=== PATIENT | female | born 1955 | race African-American/Black ===

== ENCOUNTER 2016-08-31 06:06 | Inpatient (IN) ==
--- NOTE | 2016-08-30 12:34 | EKG Report ---
Stationary ECG Study [facility] Test Date: 08/30/2016 12:33:51 PM Pat Name: DEYSI NAVARRO Department: Room: Gender: F Neonatal Pediatric Nurse: YAMILE PADILLA : 1955 Requested by: Beto Stacy Order Number: [id number] Reading MD: MELISSA SALCEDO Intervals [place] Rate: 47 P: 84 NV: 149 QRS: 88 QRSD: 94 T: 80 QT: 469 QTc: 431 Interpretive Statements SINUS BRADYCARDIA MINIMAL ST DEPRESSION Electronically Signed On 08-30-16 13:01:28 FORMULA BOTTLER by MELISSA SALCEDO [email or web address]
[2016-08-30 12:35] LABS: Basophils # 0.1 10*3/uL (0.0-0.2); Basophils % 1.1 % (0.0-0.8); Eosinophils # 0.1 10*3/uL (0.0-0.87); Eosinophils % 2.5 % (0.00-10.9); Hematocrit 41.6 VOL% (35.7-47.0); Hemoglobin 13.2 GM/DL (12.0-16.0); Immature Granulocytes % 0.2 %; Immature Granulocytes Absolute 0.01 #; Lymphocytes # 2.3 10*3/uL (1.4-4.0); Lymphocytes % 47.8 % (21.3-54.2); Mean Corpuscular HGB Conc 31.7 GM/DL (32-36); Mean Corpuscular Hemoglobin 30 PG (27-34); Mean Corpuscular Volume 93.3 FL (87-102); Mean Platelet Volume 9.7 FL (9.6-12.0); Monocytes # 0.4 10*3/uL (0.11-0.8); Monocytes % 7.6 % (1.7-12.7); Neutrophils # 1.9 10*3/uL (1.4-7.4); Neutrophils % 40.8 % (38.7-73.9); Platelet Count 283 T/CUMM (130-400); Red Blood Count 4.46 MC/CUMM (3.8-5.5); Red Cell Distribution Width 12.6 % (9.3-17.3); White Blood Count 4.7 T/CUMM (4-12)
[2016-08-30 12:44] LABS: PT Patient Result 10.5 SECS; Partial Thromboplastin Time 24.9 SECS (0-40)
[2016-08-30 13:10] LABS: Albumin 3.9 G/DL (3.4-5.0); Bilirubin,Total 0.7 MG/DL (0.2-1.0); Calcium 9.5 MG/DL (8.5-10.1); Osmolality,Calculated 294.6 MOS/KG (273-304); Potassium 4.6 MMOL/L (3.5-5.1); Total Protein 7.4 G/DL (6.4-8.3)
--- NOTE | 2016-08-30 13:30 | XRay Report ---
XR chest 2V Indication: Preop evaluation Comparison: None Technique: Frontal and lateral views of the chest Findings: Heart size is upper limits of normal. Chronic changes of the lungs without focal consolidation, pleural effusion, or pneumothorax. There is significant eventration of the right hemidiaphragm. Osseous and surrounding soft tissue structures demonstrate no acute abnormality. IMPRESSION: No acute cardiopulmonary process demonstrated. PROCEDURE INTERPRETED AT [facility] DEPARTMENT OF RADIOLOGY Final Report Signed by: Dr Geovani Robbins
[~2016-08-31 06:06] MED LIST: ceFAZolin 2,000 MG in PREMIX 1 EACH IV ONE
[2016-08-31] MEDS ORDERED: FAMOTIDINE 20 MG TABLET PO ONE (06:26)
[2016-08-31] MEDS ORDERED: FAMOTIDINE 20 MG TABLET ONE (06:31)
[2016-08-31] MEDS: LACTATED RINGERS 1,000 ML IV SCH ×2 (06:32→08:06)
--- NOTE | 2016-08-31 06:39 | History and Physical Update ---
History and Physical Update - History and Physical H&P was reviewed, the patient examined and there: are no changes in the patients condition since last H&P was completed.
[2016-08-31] MEDS ORDERED: ISOSULFAN BLUE 5 ML VIAL SUBCUT ONE (06:42)
[2016-08-31] MEDS ORDERED: ROCURONIUM 100 MG/10 ML VIAL IV ONE (07:18)
[2016-08-31] MEDS ORDERED: NEOSTIGMINE 10 MG/10 ML VIAL ONE (07:18)
[2016-08-31] MEDS ORDERED: LIDOCAINE 1% 5 ML VIAL ONE (07:18)
[2016-08-31] MEDS ORDERED: ONDANSETRON 4 MG/2 ML VIAL ONE (07:18)
[2016-08-31] MEDS ORDERED: DEXAMETHASONE 10 MG/1 ML VIAL ONE (07:18)
[2016-08-31] MEDS ORDERED: PHENYLEPHRINE 1 MG/10 ML SYRINGE IV ONE (07:18)
[2016-08-31] MEDS ORDERED: GLYCOPYRROLATE 0.4 MG/2 ML VIAL ONE (07:18)
[2016-08-31] MEDS ORDERED: PROPOFOL 200 MG/20 ML VIAL IV ONE (07:18)
[2016-08-31] MEDS ORDERED: ONDANSETRON 4 MG/2 ML VIAL IV PRN ×2 (07:43→09:49)
[2016-08-31] MEDS ORDERED: HYDROmorphone 2 MG/1 ML VIAL IV PRN ×2 (07:43→09:49)
[2016-08-31] MEDS ORDERED: BACITRACIN 50,000 UNIT VIAL ONE (09:35)
[2016-08-31] MEDS ORDERED: ACETAMINOPHEN 325 MG TABLET PO PRN (09:49)
[2016-08-31] MEDS ORDERED: BISACODYL 5 MG TABLET PO PRN (09:49)
--- NOTE | 2016-08-31 10:06 | Operative Note ---
Date of procedure: 08/31/16 Pre-op diagnosis: Local recurrent breast cancer right breast Post-op diagnosis: same Procedure: Operative note: Preoperative diagnosis: Locally recurrent breast cancer of the right breast Postoperative diagnosis: Same Procedure: Right nipple sparing mastectomy with axillary dissection per Dr. Stacy Breast reconstruction per Dr. Petersen Surgeon Dr. Stacy Plastic surgeon Dr. Petersen Irrigator Gravity Flow Monae Dinh, STUDENT MINISTRY PASTOR ACNP Anesthesia General tracheal. Brief history: 61-year-old -[place] female who several years ago had a lumpectomy of the right breast for a cancer and underwent radiation therapy today but did not have an axillary dissection. She was on tamoxifen for a while but has been off of that now. Came to see us because of a recurrent area in the right breast at the area of her previous incision. Core needle biopsy showed that this was cancer and probably is a local recurrence in this breast at the site of her previous surgery. We discussed the situation with the patient and she understood that because she has had radiation therapy she is going to have to undergo a mastectomy and she elected reconstruction. Dr. Petersen discussed the procedure with the patient and planned out the surgical incision. Because the recurrence is 6-8 cm from the nipple we elected to do a nipple sparing mastectomy. Procedure: With patient supine position prepped and draped in sterile fashion timeout and antibiotics completed we made an incision as outlined by Dr. Petersen on the lateral part of the breast and just underneath the areola. We went to the skin and subcutaneous tissue and then we lifted this tissue up and began to take the breast off using a knife to carefully remove the breast from the Fredy's fascia underneath it to the level of the areola. Once we reached the areolar we carefully dissected underneath that goal is close to the nipple as we can get. Once we had a clear of the areola we then carried this up to the clavicle area down to the level of the muscle at this level. Using sharp dissection with the knife we were able to create a superior and inferior flaps down to the costal margin and then medial to the sternal and lateral to the latissimus muscle. Once we had these created here I went back to the areola where we took some additional breast tissue from the underside of the nipple sent for pathology. Frozen on this which show benign tissue and no evidence of any Cancer in this area. Once that was done and we went up and begin to take the breast off the chest wall by incising the fascia on top of the pectoralis major muscle bring it medial to lateral to we get this up towards the axilla. We carefully dissected along the lateral border of the pectoralis major muscle to identify the minor carefully dissected preserving the vessels to the muscles. This got us into the area of the axilla were brought the pro BN but we could not find a decent signal in this area to call a clear sentinel node. They had indicated one that we can never pick it up on the probe at this time. With that I just did a lower axillary dissection taking some of this axillary tissue out at this time which had some palpable nodes in it. Once this tissue was removed intact with the right breast we were able to remove the rest of the breast from the chest wall. Margins were marked as well as the tumor in the area of the areola. Once that was done and sent to pathology Dr. Petersen began to come in to look at her wound. We washed everything with sterile water and using light cauterization controlling additional bleeding. It looked pretty dry when the pathologist called back and was concerned that the recurrent tumor was very close to the upper margin. We knew it shaved it under the skin where there was some scar tissue which showed this to Dr. Petersen and he tono out an area where we could ellipse this area of skin out where the tumor was underneath. We took the knife and ellipse the skin out to be sent as a permanent scan where the tumor was underneath. Once that was completed and no other bleeding was seen Dr. Petersen came in to do the reconstruction part at this time. Refer to Dr. Ireland's note Estimated blood loss from the mastectomy about 30 cc Sponge count was correct 2 Drain probably 1 Trace-Carney Complications none Condition stable satisfactory Anesthesia: CATALINAA Surgeon / Physician: Beto Stacy Irrigator Gravity Flow: Monae Dinh Estimated blood loss: other (30 cc) Specimens: other (Right breast and axilla) Condition: stable Disposition: floor Results - Labs CBC & BMP: 08/30/16 12:25 08/30/16 12:25 Discharge Plan - Discharge Medications No Action hydroCHLOROthiazide [Hydrochlorothiazide] 25 mg PO DAILY Lisinopril 40 mg PO DAILY - Follow Up or Referral - Forms/Instructions
[2016-08-31] MEDS ORDERED: TISSUE ADHESIVE 1 EACH APPLICATOR TOP ONE ×2 (10:29→10:34)
[2016-08-31] MEDS ORDERED: MIDAZOLAM 2 MG/2 ML VIAL ONE (11:01)
[2016-08-31] MEDS ORDERED: SUFentanil 50 MCG/ML AMP ONE (11:01)
[2016-08-31] MEDS ORDERED: ACETAMINOPHEN 1,000 MG/100 ML VIAL IV ONE (11:01)
[2016-08-31] MEDS ORDERED: LACTATED RINGERS 1,000 ML IV ONE (11:01)
[2016-08-31] MEDS ORDERED: SEVOFLURANE 1 UNIT/15 MINUTE INH ONE (11:01)
[2016-08-31] MEDS: DEXTROSE 5% NACL 0.45% 1,000 ML IV SCH ×2 (11:59→22:03)
--- NOTE | 2016-08-31 12:24 | Anesthesia ---
Anesthesia Post OP - Post Ansesthetic Evaluation Patient seen in post op: Yes Resp: within normal limits CV: within normal limits Mental: within normal limits Temp: within normal limits Bmmh-Gk-Egnicokbc: within normal limits Nausea and Vomiting: within normal limits Pain: within normal limits
[2016-08-31] MEDS: KETOROLAC 15 MG/1 ML VIAL IV SCH ×2 (12:29→21:59)
[2016-08-31 15:14] LABS: Hematocrit 39.3 VOL% (35.7-47.0); Hemoglobin 12.8 GM/DL (12.0-16.0)
[2016-08-31] MEDS: ceFAZolin 2,000 MG in PREMIX 1 EACH IV SCH (15:35)
[2016-09-01] MEDS: ceFAZolin 2,000 MG in PREMIX 1 EACH IV SCH ×2 (00:33→08:04)
[2016-09-01] MEDS: KETOROLAC 15 MG/1 ML VIAL IV SCH (04:34)
[2016-09-01 05:53] LABS: Basophils % 0.4 % (0.0-0.8); Eosinophils % 0.4 % (0.00-10.9); Hematocrit 34.6 VOL% (35.7-47.0); Immature Granulocytes % 0.7 %; Immature Granulocytes Absolute 0.05 #; Lymphocytes # 2.1 10*3/uL (1.4-4.0); Lymphocytes % 27.1 % (21.3-54.2); Mean Corpuscular HGB Conc 31.8 GM/DL (32-36); Mean Corpuscular Hemoglobin 30 PG (27-34); Mean Corpuscular Volume 93.8 FL (87-102); Mean Platelet Volume 10.5 FL (9.6-12.0); Monocytes # 0.8 10*3/uL (0.11-0.8); Monocytes % 10.2 % (1.7-12.7); Neutrophils # 4.7 10*3/uL (1.4-7.4); Neutrophils % 61.2 % (38.7-73.9); Platelet Count 220 T/CUMM (130-400); Red Blood Count 3.69 MC/CUMM (3.8-5.5); Red Cell Distribution Width 12.7 % (9.3-17.3); White Blood Count 7.6 T/CUMM (4-12)
[2016-09-01 06:06] LABS: Calcium 8.5 MG/DL (8.5-10.1); Osmolality,Calculated 288.8 MOS/KG (273-304); Potassium 4.2 MMOL/L (3.5-5.1)
[2016-09-01 06:24] LABS: Platelet Estimate Normal
--- NOTE | 2016-09-01 07:44 | Oncology Consult Note ---
History of Present Illness History of present illness: Ms. 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 She underwent nipple sparing mastectomy yesterday. I was asked to see her mainly as a courtesy. She looks well this morning. She is scheduled to see me on September 05. We will move this to September 12 to give time for the pathology to return. Home Medications Medication Instructions Recorded Confirmed Type Lisinopril 40 mg PO DAILY 08/30/16 08/31/16 History hydroCHLOROthiazide 25 mg PO DAILY 08/30/16 08/31/16 History [Hydrochlorothiazide] Allergies Allergy/AdvReac Type Severity Reaction Status Date / Time No Known Allergies Allergy Unverified 08/31/16 06:17 Medical,Surgical,& Family Hx - Medical History Cardio: History of: Hypertension, Cardiovascular Problems (DR BREEN PCP.) Neurology: No history of: Seizures Endocrine: History of: Dyslipidemia (BOARDERLINE) Respiratory: History of: Respiratory Problems (FLU VAC- YES; PNEU VAC-NO.) Reproductive: History of: Breast Cancer (RT BREAST CANCER 1997/1998. REOCCURED 2016.) Other: History of: Cancer (RT BREAST CANCER.) - Surgical History Reproductive Surgeries: Surgical HX of;: Breast Surgery (RT BREAST BX DR PETERSON. LUMPECTOMY 1998. MASS REMOVED.), Tubal Ligation - Family History Family History: Reports;: Family Cancer (COUSINS BREAST CA MATERNAL), Family Diabetes (PATERNAL AND MATERNAL GRANDPARENTS), Family Hypertension (BROTHER SISTER) - Social History Smoking Status: Current some day smoker Frequency of Alcohol Use: None Type of Drug Use: None Exam - Constitutional Vitals: Period Temp Pulse Resp BP Sys/Sethi Pulse Ox Last 24 Hr 96.6 F-98.4 F 57-78 16-20 113-192/58-92 96-100 Results - Labs CBC & BMP: 09/01/16 05:12 09/01/16 05:12
[2016-09-01] MEDS ORDERED: ENOXAPARIN 30 MG/0.3 ML SYRINGE SUBCUT SCH (08:00)
[2016-09-01] MEDS: DEXTROSE 5% NACL 0.45% 1,000 ML IV SCH (08:03)
[2016-09-01] MEDS ORDERED: NON-FORMULARY MEDICATION (Lisinopril [Lisinopril] 40 MG) PO SCH (09:00)
[2016-09-01] MEDS ORDERED: PANTOPRAZOLE 40 MG TABLET PO SCH (09:00)
[2016-09-01] MEDS ORDERED: hydroCHLOROthiazide 25 MG TABLET PO SCH (09:00)
--- NOTE | 2016-09-01 10:48 | Discharge Summary ---
Hospital Course - Hospital Course Hospital Course: Discharge Summary Diagnosis: 1. Recurrent carcinoma of the right breast 2. Hypertension Procedures: 1. Right nipple sparing mastectomy by Dr Stacy 2. Right tissue senior mainframe programmer analyst with ADM and left breast augmentation by Dr Elia Petersen Brief summary-this 61 year old lady had previously undergone right breast lumpect[place] [address] Channing bruner for a small area of infiltrating ductal carcinoma. At that time she apparently had a very small invasive lesion and not had any axillary nodes biopsied. She completed a recommended 5 year course of Tamoxifen and had done well until recent mammogram showed changes in the upper outer quadrant, which when biopsied showed infiltrating ductal carcinoma. Mastectomy with sentinel node biopsy was recommended. After meeting with Dr Petersen, she elected for immediate tissue senior mainframe programmer analyst on the right and additional left augmentation was chosen. We proceeded with the surgery on 08/31/16, and she has done well during the perioperative period, with stable vital signs and labs. Today she is ambulatory, tolerating a regular diet, and having minimal pain. She has less than 20mL of serous drainage in her JUANA drain. The wounds are clean and there is no unusual swelling, ecchymosis, or tenderness. There is no ischemic changes to suggest flap compromise. She has been taught to manage her JUANA drain, and is comfortable going home without the aid of Home health. She has good family support, and has been instructed on wound care, signs of infection or post op complications, and what she needs to watch for in the way of problems with her drain. She is to resume her previous home medications as prior to surgery. I have also advised her to take an 81mg aspirin daily, and we will add Erie, 5/325mg po every 6h prn pain. We will follow up in our office in 7-10 days, and she will follow up with Dr Petersen in 2 weeks or PRN. - Time spent with patient Time with patient DS: Greater than 30 minutes Specialty Discharge - Follow Up or Referrals Follow up with: Kel Pham MD [Physician] - 09/12/16 11:00 am Beto Stacy MD [Physician] - (See Dr Stacy or Monae in 7-10 days) Elia Petersen MD [Physician] - 2 Weeks Discharge Plan - Discharge Data Disposition: Disch To Home/Self Care Condition at Discharge: Stable Discharge Diet: advance to your usual diet Activity: increase activity as tolerated Driving: not for (one week.) Contact your physician if you experience:: fever over 101, Redness or swelling, Nausea/Vomiting, Shortness of breath, Bleeding, pain uncontrolled by pain medications Wound / Dressing Care Instructions: Shower/wash the incisions and drain site daily with Hibiclens; rinse and pat dry. Cover incisions and drain site with a strip of Aquacel AG and a secondary gauze dressing of choice; OK to use dry gauze or Telfa and lightly tape the edges. OK to wear a light weight sports bra or a work-out tank as long as it does not fit too tightly. No underwire bras or tight fitting undergarments. - Discharge Medications New hydroCHLOROthiazide [Hydrochlorothiazide] 25 mg PO DAILY #0 tablet HYDROcodone/ACETAMIN 5-325 [Erie 5-325] 1 tablet PO Q6H PRN #20 tablet PRN Reason: Pain Severe (8-10) Continue Lisinopril 40 mg PO DAILY Discontinued hydroCHLOROthiazide [Hydrochlorothiazide] 25 mg PO DAILY - Follow Up or Referral Follow Up: Kel Pham MD [Physician] - 09/12/16 11:00 am - Forms/Instructions Additional Discharge Instructions: Please make sure the patient knows to resume ALL her home medications; for some reason, I cannot edit the order regarding resuming her HCTZ, but she needs to resume LISINOPRIL AND HCTZ. Thanks. Exam - Constitutional Vitals: Period Temp Pulse Resp BP Sys/Sethi Pulse Ox Last 24 Hr 96.6 F-98.4 F 45-78 16-20 113-192/58-92 96-100 General appearance: normal weight, no acute distress, other (Family is present and very supportive; she is cheerful and attentive, eager to learn self care and postmastectomy exercises. ) - Head Head exam: Present: normocephalic - Neck Neck exam: Present: normal inspection. Absent: lymphadenopathy - Respiratory Respiratory exam: Present: clear to auscultation bilaterally, other (I will include the breast exam here since there is no appropriate tab for breast evaluation on the discharge summary: Post op changes include no ischemic areas; dry incisions bilaterally. No seroma, no unusual ecchymoses present. There is no fluctuance, no unusual tenderness. Implant on the left is intact, palpable on the left without seroma. JUANA in place, serous drainage-about 20mL. ) - Cardiovascular Cardiovascular exam: Present: regular rate and rhythm - GI/Abdominal GI/Abdominal exam: Present: hypoactive bowel sounds, soft. Absent: distended - Extremities Exam Extremities exam: Present: other (Good shoulder range of motion. ). Absent: edema - Neurological Exam Neurological exam: Present: alert, oriented X3 - Psychiatric Psychiatric exam: Present: normal affect, normal mood. Absent: depressed Discharge Results Procedures and tests throughout hospitalization: Post op H&H stable. Labs on day of discharge: Labs from last 24 hours 09/01/16 09/01/16 08/31/16 05:12 05:12 15:02 WBC 7.6 D RBC 3.69 L Hgb 11.0 L 12.8 Hct 34.6 L 39.3 MCV 93.8 MCH 30 MCHC 31.8 L RDW 12.7 Plt Count 220 D MPV 10.5 Neut % (Auto) 61.2 Lymph % (Auto) 27.1 Craven % (Auto) 10.2 Eos % (Auto) 0.4 Baso % (Auto) 0.4 Neut # (Auto) 4.7 Lymph # (Auto) 2.1 Craven # (Auto) 0.8 Eos # (Auto) 0.0 Baso # (Auto) 0.0 Immature Gran % 0.7 Nucleated RBC % 0.0 Immature Gran # 0.05 Nucleated RBCs # 0.00 Platelet Estimate Normal Anisocytosis Sodium 144 Potassium 4.2 Chloride 107 Carbon Dioxide 29 Anion Gap 12.2 BUN 17 Creatinine 0.80 GFR Calculation 100 BUN/Creatinine Ratio 21.00 H Glucose 122 H Calculated Osmolality 288.8 Calcium 8.5 DS: Provider Date of admission: 08/31/16 06:07 Primary care physician: DERRICK Thompson Attending physician on admission: Beto Stacy MD Consults: 08/31/16 09:49 Consult to Physician [CONS] Routine Comment: Consulting Provider: Kel Pham Consult to Specialist Group: Oncology When should Consulting Provider be notified: Now Consult Notification Comment: Patient who has had a local recurrence in the right breast following lumpectomy and radiation therapy she is now postop. Nipple sparing right mastectomy with reconstruction 08/31/16 09:53 Consult to Case Mgmt/Social Srvs [CONS] Routine Reason for Case Mgmt/Social Srvs: Discharge Planning Consult Comment: home health for wound care 08/31/16 12:06 Consult to Pharmacy [CONS] Routine Reason for Pharmacy Consult: Adjust Meds Renal Funct Discharging clinician: Monae Dinh CNP, R
[2016-09-01 13:44] VITALS: BP 188/86
--- NOTE | 2016-09-02 11:16 | Pathology Report from [facility] ---
ACCESSION # : [id number] PATIENT NAME : Deysi Shafer ORDERING DR : KARYNA SALVADOR MD CLINICAL HX: RT breast CA POST-OP DX: Same SPECIMEN INFO: #1 Breast tissue under nipple #2 RT breast tissue #3 Skin area for tumor closer to skin RT additional tissue GROSS DESCRIPTION: #1 Received fresh for frozen is a 1.5 x 0.9 cm fragment of hemorrhagic fatty tissue submitted in cassette #1 for frozen.#2 "DEYSI SHAFER" received fresh is an 18.5 x 10.0 x 2.5 cm skin sparing mastectomy which has been previously inked: anterior green, inferior blue, lateral orange, medial yellow, deep black and superior red. An attached suture cardenas the area of the nipple with an additional suture marking the 8:00-9:00 position at previous biopsy site with surrounding indurated tissue that affects both the anterior and deep margins. A portion of axillary tissue is present measuring 7.0 x 4.0 cm. Lymph nodes will be submitted following dissect aid fixation. The remaining cut surfaces are fibrofatty with no other masses or other lesions appreciated. 2A-2C Tumor site lower outer quadrant. Time in formalin 0930 08/31 and time out 1800 on 08/31/2016. 2D and 2E lymph nodes. (lymph nodes added 09/01/2016)#3 "DEYSI SHFAER" received fresh is a 4.5 x 1.2 x 0.8 cm brown skin ellipe with subcutaneous tissue. A suture marleni the previous margin nearest tumor. This area is inked blue. Sectioned and submitted entirely in 3A-3D. Time in formalin 0940 08/31 and time out 1800 08/31/2016. DIAGNOSIS FOR DEYSI SHAFER: #1-#3 RIGHT BREAST, SKIN SPARING MASTECTOMY, W/ AXILLARY NODES (Intact, 18.5 x 10.0 x 2.5 cm): TUMOR TYPE: Ductal adenocarcinoma. TUMOR SITE: Lower outer quadrant TUMOR SIZE: 12 mm. TAL GRADE I (tubules = 2, pleomorphism = 2, mitoses = 6 MF/ 10 HPF). TUMOR MARGINS: Lower outer anterior margin positive for carcinoma on mastectomy specimen; #3 Additional lower outer anterior margin has a <1 mm focus of tumor with final margins NEGATIVE (2 mm). DCIS: Absent. LYMPH- VASCULAR INVASION: Present. SKIN: Not involved. LYMPH NODES: Total lymph nodes present (sentinel & non sentinel): 6; Total sentinel nodes: 0. All lymph nodes negative for tumor (0/6). ADDITIONAL FINDINGS: #1 Benign nipple duct epithelium. AJCC PATHOLOGIC STAGE IA (pT1cN0) .NOTE: Tumor markers on previous biopsy ([id number], 07/26/16) show ER+/ UT-/ HER2-/ Ki-67 8%. SERVICE DATE: 08/31/2016 REPORT DATE: 09/02/2016 PATHOLOGIST: Michael Escoto M.D. [facility]
== END 2016-09-01 12:40 | disposition home or self-care (01) | DRG 581 ==
LOC: N.OR 06:06 → N.SDSINP 06:07 → EDSTATUS 07:30 → N.4E 09:44
PROVIDERS: ADMIT Specialist; ATTEND Specialist

== ENCOUNTER 2017-06-02 06:38 | Inpatient (IN) ==
[~2017-06-02 06:38] MED LIST changes: +ceFAZolin 1,000 MG in SYRINGE 1 EACH IV ONE; -ceFAZolin 2,000 MG in PREMIX 1 EACH IV ONE
[2017-06-02] MEDS: LACTATED RINGERS 1,000 ML IV SCH ×4 (07:42→18:07)
[2017-06-02] MEDS ORDERED: ceFAZolin 1,000 MG VIAL ONE (07:46)
[2017-06-02] MEDS ORDERED: SEVOFLURANE 1 UNIT/15 MINUTE INH ONE (15:14)
[2017-06-02] MEDS ORDERED: PROPOFOL 200 MG/20 ML VIAL IV ONE (15:14)
[2017-06-02] MEDS ORDERED: MIDAZOLAM 2 MG/2 ML VIAL ONE (15:15)
[2017-06-02] MEDS ORDERED: ePHEDrine 50 MG/ML AMP ONE (15:15)
[2017-06-02] MEDS ORDERED: SODIUM CHLORIDE 0.9% 1,000 ML IV ONE (15:16)
[2017-06-02] MEDS ORDERED: ONDANSETRON 4 MG/2 ML VIAL ONE ×2 (15:16→15:30)
[2017-06-02] MEDS ORDERED: NEOSTIGMINE 10 MG/10 ML VIAL ONE (15:16)
[2017-06-02] MEDS ORDERED: GLYCOPYRROLATE 0.4 MG/2 ML VIAL ONE (15:16)
[2017-06-02] MEDS ORDERED: ROCURONIUM 100 MG/10 ML VIAL IV ONE (15:16)
[2017-06-02] MEDS ORDERED: ACETAMINOPHEN 1,000 MG/100 ML VIAL IV ONE (15:16)
[2017-06-02] MEDS ORDERED: LACTATED RINGERS 1,000 ML IV ONE (15:16)
[2017-06-02 15:23] LABS: Apearance,Urine CLEAR (Clear); Bilirubin,Urine Negative (Negative); Blood, Urine Negative (Negative); Glucose,Urine (UA) Negative (Negative); Ketones,Urine Negative (Negative); Mucus,Urine Occasional /LPF (Occasional); Nitrite,Urine Negative (Negative); Protein,Urine Negative; RBC,Urine <1 /HPF (0-4); Squamous Epithelial Cell,Urine Occasional /HPF (0-10); Urine Color Yellow (Yellow); Urine Specific Gravity 1.014 (1.001-1.035); Urine Urobilinogen < 2.0 EU/DL (0.2-1.0)
[2017-06-02] MEDS ORDERED: ONDANSETRON 4 MG/2 ML VIAL IV PRN (15:28)
[2017-06-02] MEDS ORDERED: HYDROmorphone 2 MG/1 ML VIAL ONE (15:30)
[2017-06-02] MEDS: HYDROmorphone 2 MG/1 ML VIAL IV PRN ×4 (15:35→17:00)
[2017-06-02] MEDS ORDERED: MORPHINE 2 MG/1 ML SYRINGE IV PRN (17:49)
[2017-06-02 18:35] LABS: Hematocrit 29.4 VOL% (35.7-47.0); Hemoglobin 9.9 GM/DL (12.0-16.0)
[2017-06-02] MEDS: ceFAZolin 1,000 MG in SYRINGE 1 EACH IV SCH (20:57)
[2017-06-03] MEDS: LACTATED RINGERS 1,000 ML IV SCH ×3 (01:38→12:04)
[2017-06-03] MEDS: ceFAZolin 1,000 MG in SYRINGE 1 EACH IV SCH ×2 (04:54→09:41)
[2017-06-03 09:10] LABS: Hematocrit 27.5 VOL% (35.7-47.0)
[2017-06-03 15:59] LABS: Hematocrit 31.9 VOL% (35.7-47.0); Hemoglobin 10.4 GM/DL (12.0-16.0)
[2017-06-03] MEDS ORDERED: ACETAMINOPHEN 325 MG TABLET PO PRN (21:28)
[2017-06-04 05:51] LABS: Hematocrit 29.8 VOL% (35.7-47.0); Hemoglobin 9.7 GM/DL (12.0-16.0)
[2017-06-04 12:02] VITALS: BP 139/89
== END 2017-06-04 13:14 | disposition home or self-care (01) | DRG 585 ==
LOC: N.OR 06:38 → N.SDSINP 06:38 → EDSTATUS 10:00 → N.2E 17:42 → EDSDCBED 17:46 → N.OR 06-04 13:14 → UNDODEPSDC 07-11 09:31
PROVIDERS: ADMIT Specialist; ATTEND Specialist